=== PATIENT | female | born 1995 | race Caucasian/White ===

== ENCOUNTER 2017-11-07 08:24 | Inpatient (IN) | payer OTHER ==
[~2017-11-07] VITALS: Ht 154.9 cm; Wt 78.9 kg
[2017-11-07] MEDS ORDERED: PRENATAL TABLE1 EACH PO (09:37)
[2017-11-07] MEDS ORDERED: ZOVIRAX400 M1 PO (09:38)
== END 2017-11-09 15:57 | disposition home or self-care (01) | DRG 775 ==
LOC: LDR 08:24 → OB/GYN 08:24
PROC: 10E0XZZ Delivery of Products of Conception, External Approach (ICD-10-PCS; principal; 2017-11-07)
PROC: 4A1HXCZ Monitoring of Products of Conception, Cardiac Rate, External Approach (ICD-10-PCS; 2017-11-07)
PROC: 4A033R1 Measurement of Arterial Saturation, Peripheral, Percutaneous Approach (ICD-10-PCS; 2017-11-07)
DX: O80 Encounter for full-term uncomplicated delivery (principal); Z3A.38 38 weeks gestation of pregnancy; Z37.0 Single live birth